=== PATIENT | female | born 1975 | race Caucasian/White ===

== ENCOUNTER 2022-10-20 09:11 | Outpatient (CLI) | payer OTHER, SELFPAY ==
--- NOTE | 2022-10-20 09:15 | CRLHL7_ITS ---
For Patients: As a result of the Cures Act, medical imaging exams and procedure reports are released immediately into your electronic medical record. You may view this report before your referring provider. If you have questions, please contact your health care provider. BILATERAL SCREENING MAMMOGRAM WITH COMPUTER-AIDED DETECTION AND TOMOSYNTHESIS TECHNIQUE: CC and MLO views were obtained. These mammographic images have been obtained using full-field digital technique. These mammographic images were interpreted with the benefit of computer-aided detection. Breast Tomosynthesis was used in this interpretation. COMPARISON FILM: 09/02/21, 06/17/20, 03/07/19. FINDINGS: There are scattered areas of fibroglandular density IMPRESSION: There is no radiographic evidence for malignancy. ASSESSMENT: BI-RADS Category 1: Negative RECOMMENDATION: Routine screening mammogram in 1 year. A lay language report of this examination will be provided to the patient. Armand Lindsay M.D. Diagnostic Radiologist [email or web address] Transcribed: 3:24 p.mLeila ramirez/Dictated by: Armand Lindsay MD @ 10/20/2022 10:59:00 AM (Electronically Signed)
== END 2022-10-20 09:12 | disposition home or self-care (01) ==
PROVIDERS: PCP Internal Medicine; Visit Provider Internal Medicine
DX: Z12.31 Encounter for screening mammogram for malignant neoplasm of breast (principal)
CPT/HCPCS: 77063; 77067

== ENCOUNTER 2023-01-28 13:35 | Outpatient (CLI) | payer OTHER, SELFPAY | END 2023-01-28 13:36 | disposition home or self-care (01) | PROVIDERS: PCP Internal Medicine; Visit Provider Registered Nurse | DX: R10.2 Pelvic and perineal pain (principal); R63.5 Abnormal weight gain | CPT/HCPCS: 84443; 87086 ==

== ENCOUNTER 2023-03-29 15:24 | Outpatient (CLI) | payer OTHER, SELFPAY | END 2023-03-29 15:25 | disposition home or self-care (01) | PROVIDERS: PCP Internal Medicine; Visit Provider Internal Medicine | DX: R53.83 Other fatigue (principal); R53.1 Weakness; D64.9 Anemia, unspecified | CPT/HCPCS: 80053; 86618; 87476 ==

== ENCOUNTER 2023-04-07 14:41 | Outpatient (CLI) | payer OTHER, SELFPAY | END 2023-04-07 14:42 | disposition home or self-care (01) | PROVIDERS: PCP Internal Medicine; Visit Provider Obstetrics & Gynecology | DX: R35.0 Frequency of micturition (principal); R33.9 Retention of urine, unspecified | CPT/HCPCS: 87086 ==

== ENCOUNTER 2023-08-04 09:55 | Outpatient (CLI) | payer OTHER, SELFPAY ==
--- NOTE | 2023-08-04 10:15 | CRLHL7_ITS ---
For Patients: As a result of the Century Cures Act, medical imaging exams and procedure reports are released immediately into your electronic medical record. You may view this report before your referring provider. If you have questions, please contact your health care provider. INDICATION: Paresthesias. TECHNIQUE : Multisequence multiplanar MRI of the head before and following administration of 15 mL of gadolinium-based intravenous contrast. COMPARISON: None available. FINDINGS: Diffusion-weighted imaging demonstrates no evidence of acute or subacute ischemia. There is no abnormal brain parenchymal signal intensity. No focus of abnormal brain parenchymal or leptomeningeal enhancement is identified. The ventricles are normal in size. Flow voids of the larger intracranial arteries are patent. Normal calvarial bone marrow signal intensity. Unremarkable appearance of the orbits. Scattered paranasal sinus opacification and right mastoid effusion. IMPRESSION: 1. No acute intracranial abnormality. 2. No focus of abnormal brain parenchymal signal intensity or contrast enhancement. 3. Scattered paranasal sinus opacification and right mastoid effusion. Dictated by Armin Willingham MD @ 08/04/2023 4:01:45 PM (Electronically Signed)
== END 2023-08-04 09:56 | disposition home or self-care (01) ==
PROVIDERS: PCP Internal Medicine; Visit Provider Internal Medicine
DX: R20.0 Anesthesia of skin (principal)
CPT/HCPCS: 70553; A9575

== ENCOUNTER 2023-12-29 11:03 | Outpatient (CLI) | payer OTHER, SELFPAY ==
--- NOTE | 2023-12-29 11:30 | MM_ITS ---
Patient: HARINDER ROBERTSON Facility:?[facility] Patient ID:?[id number] Site Patient ID:?[id number]. Site :?1975 Study:?XRay-Breast Bilateral 3D W/CAD-12/29/2023 11:37:51 AM Ordering Physician:?Venancio Brooks Final Report: BILATERAL SCREENING MAMMOGRAM WITH COMPUTER-AIDED DETECTION AND TOMOSYNTHESIS TECHNIQUE: CC and MLO views were obtained. These mammographic images have been obtained using full-field digital technique. These mammographic images were interpreted with the benefit of computer-aided detection. Breast Tomosynthesis was used in this interpretation. COMPARISON FILM: 10/10/22, 09/02/21. FINDINGS: There are scattered areas of fibroglandular density. IMPRESSION: There is no radiographic evidence for malignancy. ASSESSMENT: BI-RADS Category 1: Negative RECOMMENDATION: Routine screening mammogram in 1 year. A lay language report of this examination will be provided to the patient. Armand Lindasy M.D. Diagnostic Radiologist [email or web address] DSM/sp R& Transcribed: 4:42 p.m. SP/Dictated by: Armand Lindsay MD @ 01/07/2024 12:53:00 PM Signed by:?Armand Lindsay MD @01/07/2024 4:45:30 PM (Electronic Signature)
== END 2023-12-29 11:04 | disposition home or self-care (01) ==
LOC: MAMMO 11:03
PROVIDERS: PCP Internal Medicine; Visit Provider Internal Medicine
DX: Z12.31 Encounter for screening mammogram for malignant neoplasm of breast (principal)
CPT/HCPCS: 77063; 77067

== ENCOUNTER 2024-04-25 08:02 | Outpatient (CLI) | payer OTHER, SELFPAY | END 2024-04-25 08:03 | disposition home or self-care (01) | PROVIDERS: PCP Internal Medicine; Referring Provider Internal Medicine; Visit Provider Physician Assistant | DX: Z13.6 Encounter for screening for cardiovascular disorders (principal); Z13.1 Encounter for screening for diabetes mellitus; Z13.29 Encounter for screening for other suspected endocrine disorder | CPT/HCPCS: 80061; 82947; 84443 ==

== ENCOUNTER 2024-09-13 09:32 | Outpatient (CLI) | payer OTHER, SELFPAY | END 2024-09-13 09:33 | disposition home or self-care (01) | PROVIDERS: PCP Internal Medicine; Visit Provider Obstetrics & Gynecology | DX: N39.0 Urinary tract infection, site not specified (principal); B96.20 Unspecified Escherichia coli [E. coli] as the cause of diseases classified elsewhere | CPT/HCPCS: 87086; 87186 ==

== ENCOUNTER 2025-01-16 08:01 | Outpatient (CLI) | payer OTHER, SELFPAY | END 2025-01-16 08:02 | disposition home or self-care (01) | LOC: NFLDREF 01-19 15:43 | PROVIDERS: PCP Internal Medicine; Referring Provider Internal Medicine; Visit Provider Physician Assistant Medical | DX: N39.0 Urinary tract infection, site not specified (principal) | CPT/HCPCS: 87086 ==

== ENCOUNTER 2025-01-16 09:01 | Emergency (ER) | payer OTHER, SELFPAY ==
--- OUTSIDE RECORDS SUMMARY | 2025-01-16 09:04 | XMS_ITS | Clinical Summary ---
Author Organization [facility] Address [address] [place] [address] Care Team Providers Care Territory Account Manager Name Role Phone Unassigned, Provider Primary Care Provider Unava ilable Source Comments You are receiving this document as you are listed as the primary care provider,follow-up provider, or the patient has been referred to you for consultation.This is in compliance with the Medicare and[facility] EHR Incentive Program,which states Providers who transition their patient to another setting of careor provider of care or refers their patient to another provider of care shouldprovide summary care record for each transition of care or referral. [employer] Allergies Active Allergy Reactions Criticality Noted Date Comments Other Respiratory Distress High 05/22/2021 ETHANOL ALLERGY Chest tightness and SOB Propranolol Dizziness Medium 05/22/2021 Dizzy, hot flashes Medications polyethylene glycol 3350 (GLYCOLAX) 17 GM/SCOOP powder Daily Acti ve Wheat Dextrin (BENEFIBER OR) daily. Activ e mirabegron (MYRBETRIQ) 25 MG 24 hour release tabletIndications :Urge incontinence Take 1 Tablet by mouth daily. 28 Tablet 1 Active clobetasol (TEMOVATE) 0.05 % ointment Apply a pea-sized amount to the affected area nightly x 1 month then 2 times per week thereafter. 45 g 1 1 Active Active Problems No known active problems Encounters Date Type Department Care Team Description 12/27/2024 9:00 AM CDT Office Visit [facility] [address] [facility] [address] Clemente Brown MD Juxtafoveal telangietasis of right eye (Primary Dx); Nevus of choroid of left eye; Cataract, nuclear sclerotic, both eyes from Last 3 Months Family History Medical History Relation Name Comments Cancer, Breast Mother Prolapse/Pelvic Parts Falling Down Mother Urinary Incontinence Mother Prolapse/Pelvic Parts Falling Down Maternal Grandmothe r Urinary Incontinence Maternal Grandmother Relation Name Status Comments Mother Maternal Grandmother Social History Tobacco Use Types Packs/Day Years Used Date Smoking Tobacco: Never Smokeless Tobacco: Never Alcohol Use Standard Drinks/Week Comments Never 0 (1 standard drink = 0.6 oz pur e alcohol) Comments Unknown Sex and Gender Information Value Date Recorded Sex Assigned at Not on file Legal Sex Female 4:45 AM CDT Gender Identity Not on file Sexual Orientation Not on file Last Filed Vital Signs Vital Sign Reading Time Taken Comments Blood Pressure 136/86 05/26/2021 9:58 AM CDT Pulse 75 05/26/2021 9:58 AM CDT Temperature - - Respiratory Rate - - Oxygen Saturation - - Inhaled Oxygen Concentration - - Weight 99.8 kg (220 lb) 05/26/2021 10:1 1 AM CDT taken from faxed records Height 165.1 cm (5' 5) 05/26/2021 9:58 AM CDT Body Mass Index 36.61 05/26/2021 9:58 AM CDT Plan of Treatment Upcoming Encounters Date Type Department Care Team (Late st Contact Info) Description 07/02/2025 7:30 AM CDT Appointment [facility] [address] [facility] [address] Clemente Brown MD [address] [place] [address] Health Maintenance Due Date Last Done Comments Cervical Cancer Screening Due 1975 Colon Cancer Screening Plan Due 1975 Hep C Screening (Preventive Services) 1976 Mammogram 1976 HIV Screening (Preventive Services) 1992 Adult Preventive Visit 02/13/1994 HepB (1) 02/13/1995 Cholesterol 02/13/2021 Zoster/Shingles (1 of 2) 02/13/2026 DTaP/Tdap/Td (2 - Tdap) 01/07/2028 01/06/2018 COVID-19 Vaccine Completed 08/06/2024, , 01/24/2021, Additional history exists Influenza Completed 08/06/2024, 08/04, 07/26/2022, Additional history exists HepA Aged Out No longer eligi ble based on patient's age to complete this topic Hib Aged Out No longer eligi ble based on patient's age to complete this topic IPV (Polio) Aged Out No longer eligi ble based on patient's age to complete this topic MCV4 Aged Out No longer eligi ble based on patient's age to complete this topic Meningococcal B Aged Out No longer el igible based on patient's age to complete this topic Pneumococcal Aged Out No longer eligi ble based on patient's age to complete this topic Insurance [employer] Care Teams Territory Account Manager Relationship Specialty Start Date End Date Unassigned, Provider [address] [place] [address] PCP - General 11/17/00
--- OUTSIDE RECORDS SUMMARY | 2025-01-16 09:04 | XMS_ITS | Continuity of Care Document ---
Author Organization [facility] Address [address] [place] [address] Phone Care Team Providers Care Instrumentation Instructor Name Role Phone Will Armin ONTIVEROS Unavailable Unavailabl e Procedures Procedure Date PT RE-EVALUATION NEUROMUSCULAR REEDUCATION MANUAL THERAPY NEUROMUSCULAR REEDUCATION TheraTube MANUAL THERAPY Assist Strap NEUROMUSCULAR REEDUCATION MANUAL THERAPY NEUROMUSCULAR REEDUCATION THERAPEUTIC EXERCISES MANUAL THERAPY NEUROMUSCULAR REEDUCATION NEUROMUSCULAR REEDUCATION MANUAL THERAPY THERAPEUTIC EXERCISES Advance Directives Directive Yes / No Effective Date File Name No Information Encounters Encounter Description Practice Location Reason(s) For Visit Diagnoses Date Provider Providers Copied on Encounter [facility], [address] [place] [address], [id number], [place] tel:[phone] [facility] [place] No Information Will Armin. [address] [place], [place], [id number], [place]. tel:[phone] [facility], [address] [place], [place], [id number], tel:[phone] [facility] [place] No Information In[facility] PT GIRISH Wright. [address] [place], [address]. tel:[phone] [facility], [address] [place] [address], [id number], tel:[phone] [facility] [place] No Information In[facility] PT GIRISH Wright. [address] [place] [address], [id number]. tel:[phone] [facility], [address] [place] [address], [id number], tel:[phone] [facility] [place] No Information In[facility] PT GIRISH Wright. [address] [place] [address], [facility]. tel:[phone] [facility], [address] [place] [address], [id number], tel:[phone] [facility] [place] No Information In[facility] PT GIRISH Wright. [address] [place] [address], [facility]. tel:[phone] [facility], [address] [place] [address], [id number], tel:[phone] [facility] [place] No Information Ino PT GIRISH Wright. [address] [place] [address], [facility]. tel:[phone] [facility], [address] [place] [address], [id number], tel:[phone] [facility] [place] No Information Ino PT GIRISH Wright. [address] [place] [address], [facility]. tel:[phone] Family History Family Member Type Diagnosis Age At Onset No Information Payers Payer name Insurance type Covered democrat ID Daisy ely(s) [facility] CI [id number] Social History Type Description Quantity Date Captured Comments Sex Female Smoking Status No Information Chief Complaint And Reason For Visit No Information Reason For Referral Reason For Referral No Information History Of Present Illness Encounter Date Complaint History Of Prese nt Illness No Information Functional Status Date Functional Assessmen t No Information Instructions Date Instruction Additional Infor mation No Information Assessments Type Assessment Date No Information Patient Care Teams Name Effective Dates (start - stop) Status Members No Information
--- OUTSIDE RECORDS SUMMARY | 2025-01-16 09:04 | XMS_ITS | Encounter Summary ---
Author Organization [facility] Address [address] [place] [address] Care Team Providers Care Hand Ii Blocker Name Role Phone Unassigned, Provider Primary Care Provider Unava ilable Reason for Visit * Reason Comments Follow-up Encounter Details Date Type Department Care Team (Late st Contact Info) Description 12/27/2024 9:00 AM CDT Office Visit [facility] [address] [facility] [place] [address] Clemente Brown MD [address] [place] [address] Juxtafoveal telangietasis of right eye (Primary Dx); Nevus of choroid of left eye; Cataract, nuclear sclerotic, both eyes Social History Tobacco Use Types Packs/Day Years Used Date Smoking Tobacco: Never Smokeless Tobacco: Never Alcohol Use Standard Drinks/Week Comments Never 0 (1 standard drink = 0.6 oz pur e alcohol) Comments Unknown Sex and Gender Information Value Date Recorded Sex Assigned at Not on file Legal Sex Female 4:45 AM CDT Gender Identity Not on file Sexual Orientation Not on file documented as of this encounter Progress Notes * Clemente Brown MD - 12/27/2024 9:00 AM CDT No results found for: HGBA1C, [id number] BP Readings from Last 1 Encounters: 05/26/21 136/86 OCT: RE: solitary central cyst, increased signal of ellipsoid zone T to fovea, improved LE: compact macula, normal foveal contour, nevus S to fovea, 1/4 DD, stable Fundus Photos: 08/28/24 RE: 0.15, no Pierce ring, pink optic nerve, normal caliber of blood vessels, blunted foveal reflex, irregular vessel T to the fovea, normal periphery, attached LE: 0.15, no Pierce ring, pink optic nerve, normal caliber of blood vessels, blunted foveal reflex, nevus N to fovea 1/4 DD, flat, normal periphery, attached IVFA: 08/28/24 transiting eye: RE RE: patchy choroidal filling, normal vascular filling, irregular micro vascular changes with late leakage T to fovea LE: normal vascular filling, no leakage or staining Impression/Plan: 1) 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 Lizarraga, [facility] reviewed - Observe Return 4 months for OCT BE and dilation BE Further details of the management plan can be found in the Patient Instructions section which wasprinted and given to the patient. Attending Physician Attestation: Complete documentation of historical and exam elements from today's encounter can be found in the full encounter summary report (not reduplicated in this progress note). I personally obtained the chief complaint(s) and history of present illness. I confirmed and edited as necessary the review of systems, past medical/surgical history, family history, social history, and examination findings as documented by others; and I examined the patient myself. I personallyreviewed the relevant tests, images, and reports as documented above. I formulated and edited as necessary the assessment and plan and discussed the findings and management plan with the patient and family- Clemente Brown MD documented in this encounter Plan of Treatment Upcoming Encounters Date Type Department Care Team (Late st Contact Info) Description 07/02/2025 7:30 AM CDT Appointment [facility] [address] [facility] [place] [address] Clemente Brown MD [address] [place] [address] documented as of this encounter Visit Diagnoses Diagnosis Juxtafoveal telangietasis of right eye- Primary Nevus of choroid of left eye Cataract, nuclear sclerotic, both eyes Senile nuclear sclerosis documented in this encounter Care Teams Hand Ii Blocker Relationship Specialty Start Date End Date Unassigned, Provider [address] [place] [address] PCP - General 11/17/00 documented as of this encounter
--- OUTSIDE RECORDS SUMMARY | 2025-01-16 09:04 | XMS_ITS | Clinical Summary ---
Author Organization [facility] Address [address] [place] [address] Care Team Providers Care Electrical Continuity Tester Name Role Phone No Ref-Primary, Physician Primary Care Provider Allergies Active Allergy Reactions Criticality Noted Date Comments No Clinical Screening - See Comments Other (See Comments) High 05/22/2021 ETHANOL ALLERGY Chest tightness and SOB Propranolol Dizziness Medium 05/22/2021 Dizzy, hot flashes Social History Tobacco Use Types Packs/Day Years Used Date Smoking Tobacco: Never Assessed Adolescent Education Answer Date Record ed Getting School Help Needed Not on file 08/01 Comments Unknown Sex and Gender Information Value Date Recorded Sex Assigned at Not on file Legal Sex Female 4:28 AM QUALITY INTERN Gender Identity Not on file Sexual Orientation Not on file Last Filed Vital Signs Vital Sign Reading Time Taken Comments Blood Pressure 131/89 08/01/2023 8:15 AM CDT Pulse 68 08/01/2023 8:15 AM CDT Temperature 36.7 C (98.1 F) 08/01/2023 5:13 AM CDT Respiratory Rate 10 08/01/2023 8:15 AM CDT Oxygen Saturation 97% 08/01/2023 8:15 AM CDT Inhaled Oxygen Concentration - - Weight 104.3 kg (230 lb) 08/01/2023 5:13 AM CDT Height 162.6 cm (5' 4) 08/01/2023 5:13 AM CDT Body Mass Index 39.48 08/01/2023 5:13 AM CDT Plan of Treatment Health Maintenance Due Date Last Done Comments ADVANCE CARE PLANNING 1976 ANNUAL REVIEW OF HM ORDERS 1976 CT COLONOGRAPHY 1976 FIT 1976 FLEX SIG 1976 MAMMO SCREENING 1976 sDNA (Cologuard) 1976 YEARLY PREVENTIVE VISIT 02/13/1979 COLONOSCOPY 02/13/1986 COLORECTAL CANCER SCREENING 02/13/1986 HIV SCREENING 02/13/1991 HEPATITIS C SCREENING 02/13/1994 HEPATITIS B IMMUNIZATION (1 of 3 - 19+ 3-dose series) 02/13/1995 PAP 02/13/1997 LIPID 2016 COVID-19 Vaccine ( season) 2024 09/18/2021, 01/24/2021, 01/04/2021 INFLUENZA VACCINE (#1) 2024 2, 09/02/2021, 07/16/2020, Additional history exists PHQ-2 (once per calendar year) 2024 ZOSTER IMMUNIZATION (1 of 2) 02/13/2026 DIABETES SCREENING 08/01/2026 08/01/2023 DTAP/TDAP/TD IMMUNIZATION (2 - Td or Tdap) 01/07/2028 01/06/2018 HPV IMMUNIZATION Aged Out No longer e ligible based on patient's age to complete this topic MENINGITIS IMMUNIZATION Aged Out No l onger eligible based on patient's age to complete this topic Pneumococcal Vaccine: Pediatrics (0 to 5 Years) and At-Risk Patients (6 to 49 Years) Aged Out No longer eligible based on patient's age to complete this topic Procedures Procedure Name Priority Date/Time Associated Diagnosis Comments COMPREHENSIVE METABOLIC PANEL STAT 08/01/2023 6:40 AM CDT from Last 3 Months or Most Recently Relevant to Health Maintenance Results * (ABNORMAL) Comprehensive metabolic panel (08/01/2023 6:40 AM CDT) [facility] Sodium 140 135 - 145 mmol/L 08/01/2023 7:05 AM CDT LABORATORY Comment:Reference intervals for this test were updated on 06/29/2023 to more accurately reflect our healthy population. There may be differences in the flagging of prior results with similar values performed with this method. Interpretation of those prior results can be made in the context of the updated reference intervals. Potassium 4.0 3.4 - 5.3 mmol/L 08/01/2023 7:05 AM CDT LABORATORY Carbon Dioxide (CO2) 24 22 - 29 mmol/L 08/01/2023 7:05 AM [facility] Anion Gap 10 7 - 15 mmol/L 08/01/2023 7:05 AM [facility] Urea Nitrogen 9.4 6.0 - 20.0 mg/dL 08/01/2023 7:05 AM [facility] Creatinine 0.71 0.51 - 0.95 mg/dL 08/01/2023 7:05 AM [facility] GFR Estimate >90 >60 mL/min/1. 73m2 08/01/2023 7:05 AM [facility] Calcium 9.0 8.6 - 10.0 mg/dL 08/01/2023 7:05 AM [facility] Chloride 106 98 - 107 mmol/L 08/01/2023 7:05 AM [facility] Glucose 103(H) 70 - 99 mg/dL 08/01/2023 7:05 AM [facility] Alkaline Phosphatase 86 35 - 104 U/L 08/01/2023 7:05 AM [facility] AST 13 0 - 45 U/L 08/01/2023 7:05 AM [facility] Comment:Reference intervals for this test were updated on 03/15/2023 to more accurately reflect our healthy population. There may be differences in the flagging of prior results with similar values performed with this method. Interpretation of those prior results can be made in the context of the updated reference intervals. ALT 13 0 - 50 U/L 08/01/2023 7:05 AM [facility] Comment:Reference intervals for this test were updated on 03/15/2023 to more accurately reflect our healthy population. There may be differences in the flagging of prior results with similar values performed with this method. Interpretation of those prior results can be made in the context of the updated reference intervals. Protein Total 6.5 6.4 - 8.3 g/dL 08/01/2023 7:05 AM [facility] Albumin 4.0 3.5 - 5.2 g/dL 08/01/2023 7:05 AM [facility] Bilirubin Total 0.3 <=1.2 mg/dL 08/01/2023 7:05 AM [facility] Blood STRUCTURE OF RIGHT UPPER LIMB / Unknown Venipuncture / Unknown 08/01/2023 6:40 AM CDT 08/01/2023 6:43 AM CDT Carlos Quevedo MD LAB - BLOOD ORDERABLES Mary Kay tierney Result LABORATORY [facility] [address] floor, [address] [place] [address], [facility] [phone] from Last 3 Months or Most Recently Relevant to Health Maintenance Insurance [facility] [employer] Care Teams Electrical Continuity Tester Relationship Specialty Start Date End Date No Ref-Primary, Physician PCP - General 08/01/23
[2025-01-16 09:12] VITALS: BP 158/85; PULSE 70; RESP 18; TEMP 37.1; O2SAT 98; BMI 39.5
--- NOTE | 2025-01-16 09:23 | ED_ITS ---
HPI - Abdominal Pain General Time Seen by Provider: : Date Seen: 01/16/25 Chief Complaint: Abdominal Pain Stated Complaint: check for kidney stones or appendicitis Time Seen by Provider: 01/16/25 09:23 Source: patient, RN notes reviewed and old records reviewed Mode of arrival: ambulatory Limitations: no limitations History of Present Illness HPI narrative: This 49-year-old female is coming in upon referral from clinic for further evaluation of right-sided abdominal pain. Patient started with some right-sided pain that wraps into her low back. She states she was just doing errands yesterday and got in the car felt pain in her right side. She describes the pain as an aching, was there, did wake her up about 3:00 a.m. this morning. She does have some sharp character with that. There is maybe a little nausea, she just does not quite feel well this morning. She has taken psyllium for the last year with good control of her bowels until about the last 1-2 weeks, has maybe had a little bit more issue with constipation. She had no vomiting, no fevers or chills but does get night sweats or hot flashes due to perimenopause. She has had a bladder sling and hysterectomy, no other abdominal surgeries. She notes no urinary symptoms. She has no history of kidney stones, does have a sister who is has kidney stones. She reported history of kidney infections as a child in her visit in clinic. She does note that she had a bowel movement this morning. She last ate about an hour ago. She did start metformin in November for diabetic prevention, pre diabetes. Her pain in the right lower abdomen into her low back has been increasing. It worsens with laying down and sitting, movement also makes the pain worse. Note patient's chart also lists cholecystectomy. In clinic her white count was normal at 8260, hemoglobin normal at 14.2, platelet count [id number]. Her urinalysis was clear, no evidence of infection, 0-2 red cells, 0-2 white cells, few squamous epithelial cells. Overall urinalysis is not concerning for infection and certainly no microscopic hematuria that would point more towards kidney stones. MD elicited complaint: abdominal pain Related Data Previous Rx's ?Medication ?Instructions ?Recorded estradiol 0.01% (0.1 mg/gram) 0.5 g vaginal 2XW #42.5 grams 04/07/23 vaginal cream (Estrace) alprazolam 0.5 mg tablet 0.5 mg PO BID PRN anxiety #7 tabs 09/24/23 clobetasol 0.05 % topical ointment 1 applic topical .twice a week #15 12/13/23 grams citalopram 10 mg tablet 10 mg PO QDAY #90 tabs 07/07/24 dicyclomine 10 mg capsule 10 mg PO TID #60 caps 08/10/24 metformin 500 mg tablet 500 mg PO QDAY #30 tabs 12/20/24 cyclobenzaprine 10 mg tablet 10 mg PO HS PRN muscle spasm #10 01/16/25 tabs Allergies Allergy/AdvReac Type Severity Reaction Status Date / Time alcohol Allergy Severe Anaphylaxis Verified 01/16/25 10:19 propranolol Allergy Intermediate dizzy, hot Verified 01/16/25 10:19 flashes Ethanol Allergy Severe SOB, chest Uncoded 01/16/25 10:19 tightness PFSH PFSH Medical History Abdominal pain ?R10.9 - Unspecified abdominal pain (ICD-10) Elevated blood sugar ?R73.9 - Hyperglycemia, unspecified (ICD-10) Anxiety ?F41.9 - Anxiety disorder, unspecified (ICD-10) Numbness ?R20.0 - Anesthesia of skin (ICD-10) Rectocele (10/21/11) ?N81.6 - Rectocele (ICD-10) Gestational diabetes ?O24.419 - Gestational diabetes mellitus in , unspecified control (ICD-10) Migraine with aura ?G43.109 - Migraine with aura, not intractable, without status migrainosus (ICD-10) Surgical History History of midurethral sling procedure ?Z98.890 - Other specified postprocedural states (ICD-10) History of cholecystectomy ?Z90.49 - Acquired absence of other specified parts of digestive tract (ICD- 10) History of arthroscopy of left shoulder ?Z98.890 - Other specified postprocedural states (ICD-10) History of tonsillectomy ?Z90.89 - Acquired absence of other organs (ICD-10) History of vaginal hysterectomy (10/21/11) ?Z90.710 - Acquired absence of both cervix and uterus (ICD-10) Family History Brother High cholesterol Heart disease Mother High cholesterol Diabetes Osteoporosis Breast cancer Heart disease Sister High blood pressure High cholesterol Other Stroke Social History Narrative: [place]. . Non smoker, no alcohol use What is your current living situation?: I presently have a place to live Problems where you live: no known problems In the past 12 months, utilities in danger of being shut off: no In past 12 months, lack of transportation kept you from medical appts, meetings, work, or getting things needed for daily living: no In the past 12 mos, have been you worried that your food would run out before you had money to buy more?: never true In the past 12 mos, the food you bought just didn't last and you didn't have money to buy more?: never true Non-prescribed substance use: denies use How often does anyone, including family, friends and others, physically hurt you : never How often does anyone, including family, friends and others, insult or talk down to you: never How often does anyone, including family, friends and others, threaten you with harm: never How often does anyone, including family, friends and others, scream or curse at you: never Exam Const: Vital Signs, click to edit/add: Vital Signs - 24 hr 01/16/25 09:12 Temperature 98.8 F Pulse Rate [Pulse Oximeter] 70 Respiratory Rate 18 Blood Pressure [Ri ght Upper Arm] 158/85 H Pulse Oximetry 98 Oxygen Delivery Me thod Room Air This 49-year-old female is alert, interactive, no apparent distress. Sclera clear. Breathing easy on room air, lungs clear anteriorly, no tachypnea, no accessory muscle use. CV regular rate and rhythm, no murmur, normal S1-S2. Abdomen is soft, normal bowel sounds, do not appreciate any masses or organomegaly, she does have some right lower quadrant tenderness but no rebound or guarding. Skin visualized without any rash. Patient was ambulatory into the ED of her own accord. Documenting provider has reviewed patient's vital signs: yes Course Course ED Course: Will initiate CT imaging of her abdomen pelvis with IV contrast to rule out appendicitis. I do think kidney stones are less likely. The CT will help us differentiate surgical versus nonsurgical causes of abdominal pain. She did bring up constipation and certainly this is a consideration but I do think we need to rule out such entities such as appendicitis. She had labs in clinic but will also get a C-reactive protein and basic metabolic panel here as those were not done. She declines any need for nausea or pain medicine at this time, she will let us know if she changes her mind. Have advised her to stay NPO at this time. Reevaluation(s) Time of Reevaluation #1: 10:44 Reevaluation #1: Have reviewed with patient that her CT is not showing any pathology or reason for her pain. We did review the incidental findings on the CT which are of no consequence to her current symptoms. We discussed that this could be musculoskeletal, could even be developed being pinched nerve from her back. She has not taken anything yet. We discussed Tylenol and ibuprofen, will send in a muscle relaxant for bedtime. She will follow up in clinic if ongoing symptoms. Did review with patient that her labs are not back but I will not make her wait for these. If there should be anything concerning on these, I will call her. Vital Signs Vital signs: Initial Vital Signs Temperature 98.8 F 01/16/25 09:12 Temperature Source Temporal Artery Scan 01/16/25 09:12 Pulse Rate 70 01/16/25 09:12 Respiratory Rate 18 01/16/25 09:12 Blood Pressure 158/85 H 01/16/25 09:12 Blood Pressure Mean 109 H 01/16/25 09:12 Blood Pressure Position Sitting 01/16/25 09:12 Pulse Oximetry 98 01/16/25 09:12 Oxygen Delivery Method Room Air 01/16/25 09:12 Vital Signs Temperature 98.8 F 01/16/25 09:12 Pulse Rate 70 01/16/25 09:12 Respiratory Rate 18 01/16/25 09:12 Blood Pressure 158/85 H 01/16/25 09:12 Pulse Oximetry 98 01/16/25 09:12 Oxygen Delivery Method Room Air 01/16/25 09:12 Temperature 98.8 F 01/16/25 09:12 Pulse Rate 70 01/16/25 09:12 Respiratory Rate 18 01/16/25 09:12 Blood Pressure 158/85 H 01/16/25 09:12 Pulse Oximetry 98 01/16/25 09:12 Oxygen Delivery Method Room Air 01/16/25 09:12 MDM - Abdominal Pain Lab Data Attestation: I reviewed the patient's lab results. Labs: Lab Results 01/16/25 Range/Units 10:38 Sodium 136 (135-149) mmol/L Potassium 3.8 (3.6-5.1) mmol/L Chloride 102 (96-114) mmol/L Carbon Dioxide 25 (20-32) mmol/L Anion Gap 9 (7-15) mEq/L BUN 12 (5-24) mg/dL Creatinine 0.7 (0.5-1.5) mg/dL Estimated Creat Clear 84.87 Estimated GFR 107 ml/min Glucose 99 (60-115) mg/dL Calcium 9.2 (8.4-10.6) mg/dL C-Reactive Protein 1.6 H (0.5-1.0) mg/dL Imaging Data CT scan - abdomen: Attestation: I have reviewed the pertinent imaging results. My impression: Did visualize CT images, did not see any concerning change for appendicitis but certainly will await Radiology over-read. Radiologist's impression: Patient: HARINDER ROBERTSON Facility:?[facility] Patient ID:?[id number] Site Patient ID:?[id number]. Site :?[id number] Study:?CT-Abdomen/Pelvis w/ 112cc [id number]/15/2025 10:21:57 AM Ordering Physician:?Cresencio Dunaway Final Report: INDICATION: Right lower abdominal pain. COMPARISON: None. TECHNIQUE: CT of the abdomen and pelvis with intravenous contrast. Multiplanar axial, coronal, and sagittal reformats were reconstructed. Contrast: 112 mL Isovue 370. FINDINGS: Lung bases: Normal. Liver: Normal. No mass. Gallbladder and bile ducts: Cholecystectomy. No bile duct dilation. Pancreas: Normal. Spleen: Normal. Adrenal glands: Normal. Kidneys: Normal parenchyma. No cyst or solid mass. No calculi. No urinary tract dilation. Urinary bladder: There is a very small diverticulum or everting ureterocele adjacent to the left ureterovesicular junction. The left distal ureter is not dilated. Pelvis: There is a 7 millimeter round hyperdensity versus enhancement at the level of the vaginal introitus. See series 2, image 157 and series 4, image 79. Presumed hysterectomy. Vessels: Normal. Bowel: No dilated or inflamed bowel. Normal appendix. Mild stool burden. Lymph nodes: No adenopathy. Peritoneum: No ascites. Abdominal wall: No hernia. Bones: No fractures. No focal worrisome bone lesions. IMPRESSION: 1. No specific CT explanation for the patient`s right lower quadrant abdominal pain. 2. There is a subcentimeter hyperdense perineal lesion that is probably a Bartholin`s gland cyst. 3. Very small left bladder diverticulum versus everting ureterocele. No associated urinary tract obstruction. Please note that all CT scans at this facility use dose modulation, iterative reconstruction, and/or weight-based dosing when appropriate to reduce radiation dose to as low as reasonably achievable. Dictated by Mira Marx MD @ 01/16/2025 10:30:03 AM (Electronic Signature) Discharge Plan Discharge Clinical Impression: Abdominal pain, right lower quadrant Acute right-sided low back pain Qualifiers: Sciatica presence: without sciatica Qualified Code(s): M54.50 - Low back pain, unspecified Patient Disposition: Home, Self-Care Condition: Stable Instructions: Acute Abdominal Pain (ED), Acute Low Back Pain (ED) Additional Instructions: Take Tylenol 1000 mg 3 times a day scheduled. Can add in ibuprofen per bottle directions as needed for extra pain management. Have written for muscle relaxant to take at bedtime. Can try some ice or heat to your low back area and see if this helps. Recommend follow up in clinic within the next week if ongoing symptoms, sooner if needed. We are always happy to re-evaluate you in the ER if needed. Activity Level: Activity as Tolerated Prescriptions: New cyclobenzaprine 10 mg tablet 10 mg PO HS PRN (Reason: muscle spasm) Qty: 10 0RF No Action estradiol [Estrace] 0.01 % (0.1 mg/gram) cream 0.5 g vaginal 2XW Qty: 42.5 3RF Rx Instructions: Use nightly for 2 weeks, then twice weekly. May apply with finger. alprazolam 0.5 mg tablet 0.5 mg PO BID PRN (Reason: anxiety) Qty: 7 0RF clobetasol 0.05 % ointment 1 applic topical .twice a week Qty: 15 0RF citalopram 10 mg tablet 10 mg PO QDAY Qty: 90 3RF dicyclomine 10 mg capsule 10 mg PO TID Qty: 60 3RF metformin 500 mg tablet 500 mg PO QDAY Qty: 30 0RF Follow Up/Referrals: Venancio Brooks MD [Primary Care Provider] - Stand Alone Forms: MyHealth Info Instructions
--- NOTE | 2025-01-16 09:27 | CRLHL7_ITS ---
For Patients: As a result of the Century Cures Act, medical imaging exams and procedure reports are released immediately into your electronic medical record. You may view this report before your referring provider. If you have questions, please contact your health care provider. INDICATION: Right lower abdominal pain. COMPARISON: None. TECHNIQUE: CT of the abdomen and pelvis with intravenous contrast. Multiplanar axial, coronal, and sagittal reformats were reconstructed. Contrast: 112 mL Isovue 370. FINDINGS: Lung bases: Normal. Liver: Normal. No mass. Gallbladder and bile ducts: Cholecystectomy. No bile duct dilation. Pancreas: Normal. Spleen: Normal. Adrenal glands: Normal. Kidneys: Normal parenchyma. No cyst or solid mass. No calculi. No urinary tract dilation. Urinary bladder: There is a very small diverticulum or everting ureterocele adjacent to the left ureterovesicular junction. The left distal ureter is not dilated. Pelvis: There is a 7 millimeter round hyperdensity versus enhancement at the level of the vaginal introitus. See series 2, image 157 and series 4, image 79. Presumed hysterectomy. Vessels: Normal. Bowel: No dilated or inflamed bowel. Normal appendix. Mild stool burden. Lymph nodes: No adenopathy. Peritoneum: No ascites. Abdominal wall: No hernia. Bones: No fractures. No focal worrisome bone lesions. IMPRESSION: 1. No specific CT explanation for the patient`s right lower quadrant abdominal pain. 2. There is a subcentimeter hyperdense perineal lesion that is probably a Bartholin`s gland cyst. 3. Very small left bladder diverticulum versus everting ureterocele. No associated urinary tract obstruction. Please note that all CT scans at this facility use dose modulation, iterative reconstruction, and/or weight-based dosing when appropriate to reduce radiation dose to as low as reasonably achievable. Dictated by Mira Marx MD @ 01/16/2025 10:30:03 AM (Electronically Signed)
--- OUTSIDE RECORDS SUMMARY | 2025-01-16 09:34 | XMS_ITS | Clinical Summary ---
Author Organization [facility] Address [address] [place] [address] Care Team Providers Care Program Coordinator Name Role Phone Unassigned, Provider Primary Care Provider Unava ilable Source Comments You are receiving this document as you are listed as the primary care provider,follow-up provider, or the patient has been referred to you for consultation.This is in compliance with the Medicare and[facility] Hospitalcaid EHR Incentive Program,which states Providers who transition their patient to another setting of careor provider of care or refers their patient to another provider of care shouldprovide summary care record for each transition of care or referral. Who What Wear Allergies Active Allergy Reactions Criticality Noted Date [...] Description 12/27/2024 9:00 AM CDT Office Visit [facility] [address] [facility] [place] [address] Clemente Brown MD Juxtafoveal telangietasis of right [...] Info) Description 07/02/2025 7:30 AM CDT Appointment [facility] [address] [facility] [place] [address] Clemente Brown MD [address] [place] [address] Health Maintenance Due Date Last Done Comments [...] topic Insurance [employer] Care Teams Program Coordinator Relationship Specialty Start Date End Date Unassigned, Provider [address] [place] [id number] PCP - General 11/17/00
--- OUTSIDE RECORDS SUMMARY | 2025-01-16 09:34 | XMS_ITS | Continuity of Care Document ---
Author Organization [facility] Address [address] [place] [address] Phone Care Team Providers Care Community Engagement Specialist Name Role Phone Will Armin ONTIVEROS Unavailable [...] Diagnoses Date Provider Providers Copied on Encounter [facility], [address] [place] [address], [id number], [place] tel:[phone] [facility] [place] No Information Will Armin. [address] [place], [place], [id number], [place]. tel:[phone] [facility], [address] [place], [place], [id number], tel:[phone] [facility] [place] No Information Ino PT GIRISH Wright. [address] [place], [address]. tel:[phone] [facility], [address] [place] [address], [id number], tel:[phone] [facility] [place] No Information Ino PT GIRISH Wright. [address] [place] [address], [id number]. tel:[phone] [facility], [address] [place] [address], [id number], tel:[phone] [facility] [place] No Information Ino PT GIRISH Wright. [address] [place] [address], [facility]. tel:[phone] [facility], [address] [place] [address], [id number], tel:[phone] [facility] [place] No Information Ino PT GIRISH Wright. [address] [place] [address], [facility]. tel:[phone] [facility], [address] [place] [address], [id number], tel:[phone] [facility] [place] No Information Ino PT GIRISH Wright. [address] [place] [address], [facility]. tel:[phone] [facility], [address] [place] [address], [id number], tel:[phone] [facility] [place] No Information Ino PT GIRISH Wright. [address] [place] [address], [facility]. tel:[phone] Family History Family Member Type Diagnosis Age At Onset No Information Payers Payer name Insurance type Covered republican ID Daisy ely(s) [facility] CI [id number] Social History Type Description Quantity Date Captured [...]
--- OUTSIDE RECORDS SUMMARY | 2025-01-16 09:35 | XMS_ITS | Encounter Summary ---
Author Organization [facility] Address [address] [place] [address] Care Team Providers Care Assembly Riveter Name Role Phone Unassigned, Provider Primary Care Provider Unava ilable Reason for Visit * Reason Comments Follow-up Encounter Details Date Type Department Care Team (Late st Contact Info) Description 12/27/2024 9:00 AM CDT Office Visit [facility] [address] [place] [address] Clemente Brown MD [address] [place] [address] Juxtafoveal telangietasis of right eye (Primary Dx); [...] AM CDT No results found for: HGBA1C, [id number] BP Readings from Last 1 Encounters: 05/26/21 [...] Info) Description 07/02/2025 7:30 AM CDT Appointment [facility] [address] 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
--- OUTSIDE RECORDS SUMMARY | 2025-01-16 09:35 | XMS_ITS | Clinical Summary ---
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 73m2 08/01/2023 7:05 AM [facility] Calcium 9.0 8.6 - 10.0 mg/dL 08/01/2023 7:05 AM [facility] Chloride 106 98 - 107 mmol/L 08/01/2023 7:05 AM [facility] Glucose 103(H) 70 - 99 mg/dL 08/01/2023 7:05 AM [facility] Alkaline Phosphatase 86 35 - 104 U/L 08/01/2023 7:05 AM [facility] AST 13 0 - 45 U/L 08/01/2023 7:05 AM [facility] Comment:Reference intervals for this test were updated on 03/15/2023 to more accurately reflect our healthy population. There may be differences in the flagging of prior results with similar values performed with this method. Interpretation of those prior results can be made in the context of the updated reference intervals. ALT 13 0 - 50 U/L 08/01/2023 7:05 AM [facility] Comment:Reference intervals for this test were updated on 03/15/2023 to more accurately reflect our healthy population. There may be differences in the flagging of prior results with similar values performed with this method. Interpretation of those prior results can be made in the context of the updated reference intervals. Protein Total 6.5 6.4 - 8.3 g/dL 08/01/2023 7:05 AM [facility] Albumin 4.0 3.5 - 5.2 g/dL 08/01/2023 7:05 AM [facility] Bilirubin Total 0.3 <=1.2 mg/dL 08/01/2023 7:05 AM [facility] Blood STRUCTURE OF RIGHT UPPER LIMB / Unknown Venipuncture / Unknown 08/01/2023 6:40 AM CDT 08/01/2023 6:43 AM CDT Carlos Quevedo MD LAB - BLOOD ORDERABLES Mary Kay tierney Result LABORATORY [facility] [address] floor, [address] [place] [address], [facility] [phone] from Last 3 Months or Most Recently Relevant to Health Maintenance [facility] [employer] Care Teams Slot Manager Relationship Specialty Start Date End Date No Ref-Primary, Physician PCP - General 08/01/23
[2025-01-16 10:57] LABS: Chloride* 102 mmol/L (96-114); Sodium* 136 mmol/L (135-149)
[2025-01-16 10:58] LABS: Potassium* 3.8 mmol/L (3.6-5.1)
[2025-01-16 11:00] LABS: Blood Urea Nitrogen* 12 mg/dL (5-24); Creatinine* 0.7 mg/dL (0.5-1.5); Est. Creatinine Clearance* 84.87; Estimated Glomerular Filt Rate 107 ml/min
[2025-01-16 11:01] LABS: Anion Gap 9 mEq/L (7-15); Calcium* 9.2 mg/dL (8.4-10.6); Carbon Dioxide* 25 mmol/L (20-32); Glucose* 99 mg/dL (60-115)
[2025-01-16 11:04] LABS: C Reactive Protein* 1.6 mg/dL (0.5-1.0)
== END 2025-01-16 11:16 | disposition home or self-care (01) ==
PROVIDERS: Emergency Provider Family Medicine; PCP Internal Medicine
DX: R10.31 Right lower quadrant pain (principal); M54.50 Low back pain, unspecified; N39.0 Urinary tract infection, site not specified
CPT/HCPCS: 36415; 74177; 80048; 86140; 99284; 99285; Q9967

== ENCOUNTER 2025-03-05 13:00 | Outpatient (CLI) | payer OTHER, SELFPAY ==
--- NOTE | 2025-03-05 13:20 | CRLHL7_ITS ---
For Patients: As a result of the Century Cures Act, medical imaging exams and procedure reports are released immediately into your electronic medical record. You may view this report before your referring provider. If you have questions, please contact your health care provider. INDICATION: BILATERAL SCREENING MAMMOGRAM, ASYMPTOMATIC 50 Y/O FEMALE COMPARISON: 12/29/2023, 10/20/2022, 09/02/2021 TECHNIQUE: Digital mammogram in CC and MLO projections including computer-aided detection (CAD) and tomosynthesis. BREAST COMPOSITION: There are scattered areas of fibroglandular density. FINDINGS: No suspicious findings. ASSESSMENT: BI-RADS 1 Negative RECOMMENDATION: Annual screening mammogram. A lay language report of this examination will be provided to the patient. Dictated by: Armand Lindsay MD @ 03/13/2025 12:15:46 (Electronically Signed)
== END 2025-03-05 13:01 | disposition home or self-care (01) ==
LOC: MAMMO 13:00
PROVIDERS: PCP Internal Medicine; Visit Provider Internal Medicine
DX: Z12.31 Encounter for screening mammogram for malignant neoplasm of breast (principal)
CPT/HCPCS: 77063; 77067

== ENCOUNTER 2025-07-11 11:26 | Outpatient (CLI) | payer OTHER, SELFPAY | END 2025-07-11 11:27 | disposition home or self-care (01) | LOC: NFLDREF 07-16 07:27 | PROVIDERS: PCP Internal Medicine; Referring Provider Internal Medicine; Visit Provider Physician Assistant Medical | DX: R30.0 Dysuria (principal); N39.0 Urinary tract infection, site not specified | CPT/HCPCS: 87086 ==

== ENCOUNTER 2025-07-27 09:34 | Outpatient (CLI) | payer OTHER, SELFPAY | END 2025-07-27 09:35 | disposition home or self-care (01) | LOC: NFLDREF 07-28 20:06 | PROVIDERS: PCP Internal Medicine; Referring Provider Internal Medicine; Visit Provider Nurse Practitioner Family | DX: N30.00 Acute cystitis without hematuria (principal) | CPT/HCPCS: 87086 ==